=== PATIENT | male | born 1965 | race Caucasian/White ===

== ENCOUNTER 2016-08-17 11:31 | Emergency (ER) | payer BC ==
[~2016-08-17] VITALS: Ht 172.7 cm; Wt 79.5 kg
[2016-08-17 12:00] LABS: BASO % 0.3 % (0.0-1.0); EOS # 0.1 K/mm3 (0.0-0.50); EOS % 0.8 % (0.0-3.0); LARGE UNSTAINED CELL # 0.1 K/mm3 (0.0-0.4); LARGE UNSTAINED CELL % 1.1 % (0.0-4.0); LYMPH # 2.2 K/mm3 (1.5-4.5); LYMPH % 25.1 % (24.0-44.0); MEAN CORPUSCULAR HEMOGLOBIN 29.5 pg (27.0-33.0); MEAN CORPUSCULAR HGB CONC 33.6 g/dl (32.0-36.5); MEAN CORPUSCULAR VOLUME 87.9 fl (80.0-96.0); MONO # 0.6 K/mm3 (0.0-0.8); NEUTROPHILS # 5.5 K/mm3 (1.8-7.7); NEUTROPHILS % 65.7 % (36.0-66.0); PLATELET COUNT, AUTOMATED 193 k/mm3 (150-450); RED CELL DISTRIBUTION WIDTH 13.5 % (11.5-14.5); WHITE BLOOD COUNT 8.3 K/mm3 (4.0-10.0)
[2016-08-17 12:33] LABS: ANION GAP 4 MEQ/L (8-16); BLOOD UREA NITROGEN 19 MG/DL (7-18); CALCIUM LEVEL 8.9 MG/DL (8.5-10.1); CARBON DIOXIDE LEVEL 27 MEQ/L (21-32); CHLORIDE LEVEL 108 MEQ/L (98-107); CREATININE FOR GFR 0.98 MG/DL (0.70-1.30); GLOMERULAR FILTRATION RATE > 60.0 (>56); GLUCOSE, FASTING 98 MG/DL (70-105); SODIUM LEVEL 139 MEQ/L (136-145)
[2016-08-17] MEDS ORDERED: ISOVUE-370 76% 100ML VIAL (Q9967) As Ordered ONE (12:49)
[2016-08-17] MEDS ORDERED: ASPIRIN 325 MG TAB PO ONE (13:00)
[2016-08-17 13:10] LABS: INR 0.97
--- NOTE | 2016-08-17 13:29 | REP ---
Clinical: Progressive worsening shortness of breath over 2 weeks. Technique: Axial contrast enhanced images from the thoracic inlet to the upper abdomen using 100 ml Isovue 370 intravenous contrast material with coronal and sagittal re-formations. Findings: Satisfactory enhancement of the pulmonary vasculature is achieved and no filling defects are identified to suggest pulmonary embolus. Thoracic aorta is normal caliber without aneurysm or dissection. Heart and pericardium are normal. The lung hairston demonstrate mild perihilar and basilar peribronchial thickening and trace fibroatelectatic changes which may reflect bronchitis along with subtle left hilar adenopathy which is likely reactive. No discrete consolidation, nodule or mass lesion. No pleural effusion or pneumothorax. Impression: No evidence for pulmonary embolus. Findings suggesting bronchitis with mild reactive left hilar adenopathy. Signed by Fan Robles MD 08/17/2016 01:21 P
--- NOTE | 2016-08-17 13:31 | REP ---
Clinical: Pain and swelling with chest pain . Technique: Holliday scale and color Doppler evaluation using linear high frequency transducer. Findings: Ultrasound examination of the right and left lower extremity deep venous structures from the common femoral vein to the popliteal vein demonstrates normal compressibility flow and wave patterns in response to respiration and augmentation. There is no evidence for deep venous thrombosis. Impression: No evidence for deep venous thrombosis bilateral lower extremities . Signed by Fan Robles MD 08/17/2016 01:23 P
--- NOTE | 2016-08-17 13:51 | REP ---
Clinical: Chest pain . Findings: The mediastinum and cardiac silhouette are stable and within normal limits for portable technique. The lung hairston are clear without acute consolidation, effusion, or pneumothorax. Skeletal structures are intact. Impression: No acute cardiopulmonary process appreciated. Signed by Fan Robles MD 08/17/2016 01:43 P
[2016-08-17 14:43] VITALS: BP 124/71
[2016-08-17] MEDS ORDERED: ALBUTEROL 90 MCG/ACT 8GM HFA INHALER INH ONE (15:15)
[2016-08-17] MEDS ORDERED: AZIT-12 PO (15:33)
[2016-08-17] MEDS ORDERED: AZITHROMYCIN 250 MG TAB PO ONE (15:45)
--- NOTE | 2016-08-18 07:28 | ECGEPIP ---
Stationary ECG Study [facility] - ED Test Date: 2016-08-17 Pat Name: BRIGIDO LOVE Department: Room: - Gender: M [employer]: edilma : 1965 Requested By: COMFORT Hannah Order Number: [id number] Reading MD: Carmen Mosley Measurements Intervals [place] Rate: 59 P: 25 LA: 143 QRS: 28 QRSD: 97 T: 22 QT: 398 QTc: 395 Interpretive Statements SINUS BRADYCARDIA RIGHT VENTRICULAR CONDUCTION DELAY NO PRIOR FOR COMPARISON Electronically Signed On 08-18-2016 7:28:00 EDT by Carmen Mosley
== END 2016-08-17 15:40 | disposition home or self-care (01) ==
LOC: EDSEX 11:31 → EDBD 11:31 → M ED 11:31
DX: J20.9 Acute bronchitis, unspecified (principal); R07.89 Other chest pain; R42 Dizziness and giddiness; R11.0 Nausea; R50.9 Fever, unspecified
CPT/HCPCS: 71010; 71275; 80048; 82550; 82553; 83880; 85025; 85610; 85730; 93005; 93041; 93970; 94640; 94760; 99285; Q9967

== ENCOUNTER → 2016-08-17 | Outpatient (CLI) | payer BC ==
[~2016-08-17] MED LIST: AZIT-12 PO
--- NOTE | 2016-08-17 11:04 | REP ---
Clinical: Shortness of breath . Comparison: None . Technique: PA and lateral. Findings: The mediastinum and cardiac silhouette are normal. The lung hairston are clear and without acute consolidation, effusion, or pneumothorax. The skeletal structures are intact and normal. Impression: 1. No acute cardiopulmonary process. Signed by Fan Robles MD 08/17/2016 10:55 A
== END ==
LOC: M WUC 10:28
PROVIDERS: ATTEND Physician Assistant
DX: J20.9 Acute bronchitis, unspecified (principal); R06.02 Shortness of breath